=== PATIENT | male | born 1960 | race Asian ===

== ENCOUNTER 2018-06-24 17:39 | Emergency (ER) | payer BC ==
[2018-06-24 17:42] VITALS: BP 156/94; PULSE 71; TEMP 98; BMI 29.7
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
== END 2018-06-24 19:06 | disposition home or self-care (01) ==
LOC: JERFT 17:39
DX: S20.212A Contusion of left front wall of thorax, initial encounter (principal); V43.52XA Car driver injured in collision with other type car in traffic accident, initial encounter; Y92.412 Parkway as the place of occurrence of the external cause; Y93.89 Activity, other specified; Y99.8 Other external cause status; E78.00 Pure hypercholesterolemia, unspecified; E11.9 Type 2 diabetes mellitus without complications; Z79.84 Long term (current) use of oral hypoglycemic drugs
CPT/HCPCS: 71111-TC-FY; 72050-TC-FY; 99281-25